=== PATIENT | female | born 1935 | race Caucasian/White ===

== ENCOUNTER → 2020-12-12 | Outpatient (CLI) | payer OTHER ==
[~2020-12-12] MED LIST: CEFPODOXIME PR200 MG PO
== END ==
LOC: EXRD 11:13
DX: M54.6 Pain in thoracic spine (principal); M47.814 Spondylosis without myelopathy or radiculopathy, thoracic region
CPT/HCPCS: 72070

== ENCOUNTER 2020-12-18 10:38 | Emergency (ER) | payer OTHER ==
[2020-12-18 11:58] LABS: HEMOGLOBIN 11.8 gm/dl (12.3-15.3); RED BLOOD COUNT 3.57 M/UL (4.00-5.10); WHITE BLOOD COUNT 9.9 K/UL (4.5-11.0)
[2020-12-18 12:22] LABS: BUN/CREATININE RATIO 22 (0-10)
[2020-12-18] MEDS ORDERED: CEFPODOXIME PR200 MG PO (15:41)
== END 2020-12-18 16:03 | disposition home or self-care (01) ==
LOC: ER1 10:38
PROVIDERS: Student in an Organized Health Care Education/Training Program
DX: N39.0 Urinary tract infection, site not specified (principal); I10 Essential (primary) hypertension; Z20.822 Contact with and (suspected) exposure to COVID-19; Z90.710 Acquired absence of both cervix and uterus
CPT/HCPCS: 0240U; 70450; 71045; 80053; 81001; 82550; 82553; 82803; 83605; 83735; 83874; 83880; 84100; 84484; 85025; 93005; 99284